=== PATIENT | female | born 1960 | race Caucasian/White ===

== ENCOUNTER 2023-08-11 18:31 | Emergency (ER) | payer OTHER, SELFPAY ==
[2023-08-11 18:45] VITALS: BP 149/75
--- NOTE | 2023-08-11 19:28 | ED.GENMED ---
History of Present Illness
General
Chief Complaint: Eye Problems
Source: patient
Exam Limitations: none
Time Seen by Provider: 08/11/23 19:07
Nursing documentation reviewed up to this point in time: agreed with
Travel History
Have you had any contact with someone who has COVID-19?: No
Do you have any symptoms of coronavirus? Fever > 100 degrees, chills, cough, shortness of breath, sore throat, loss of taste or smell, muscle aches, or headache?: No
History of Present Illness
History of Present Illness:
Patient woke this AM with comlaint of FB sensation right eye. Notice yellow discharge and crusting. No history of trauma. Brought self to ED for eval.
Past History
Past History
ED Past Medical History: CAD, HTN, Hypercholesterolemia, [place] and Other (ASD)
ED Past Surgical History: Cardiac (ASD repair 2010 at [facility])
PSI?: No
Social History
Tobacco: Non-smoker
Alcohol: None
Personal:
Living: with family
Review of Systems
Review of Systems
Allergies reviewed?: Yes
All Other Systems: ROS reviewed and negative except as documented in HPI and ROS
Constitutional: Reports no symptoms
EENT: Reports other (Right eye FB sensation, yellow discharge and crusting)
Respiratory: Reports no symptoms
Cardiac: Reports no symptoms
ABD/GI: Reports no symptoms
: Reports no symptoms
Musculoskeletal: Reports no symptoms
Skin: Reports no symptoms
Neurological: Reports no symptoms
Psychiatric: Reports no symptoms
Phy Exam
General Physical Exam
General Presentation: well appearing and no apparent distress
General age: appears stated age
General Skin: warm and dry
General Habitus: normal
General Mental: alert
Eye Exam
Eye Exam: PERRL, EOMI, cornea clear, globe normal and other (right conjunctival injection. Lids everted, swept with qtip, no FB detected)
Conjunctival Changes: bilateral: purulent discharge
Type of Exam: slit lamp, simple and fluorescein
Musculoskeletal Exam
Musculoskeletal Exam: full ROM and neuro vasc intact
Skin Exam
Skin Exam: normal color, warm/dry and no rash
Psychiatric Exam
Psychiatric Exam: normal mood/affect
Course
Orders/Labs/Results
Orders:
Orders
08/11/23 19:25
Tobramycin 0.3% [Tobrex 0.3% Eye Drops] See Dose Instructions OPHTH NOW STA
Vital Signs
Initial and Last Documented VS:
Initial Vital Signs
Temp Pulse Resp BP Pulse Ox
98.2 F 78 16 149/75 97
08/11/23 18:45 08/11/23 18:45 08/11/23 18:45 08/11/23 18:45 08/11/23 18:45
Last Documented Vital Signs
Temp Pulse Resp BP Pulse Ox
98.2 F 78 16 149/75 97
08/11/23 18:45 08/11/23 18:45 08/11/23 18:45 08/11/23 18:45 08/11/23 18:45
*Critical Care Note
Total Time (30-74mins, 75-104mins- exclusive of procedures): Not Applicable
ED Attending Note
-
Portions of this chart may have been created with voice recognition software.� Occasional wrong word or��sound alike� substitutions may have occurred due to the inherent limitations of voice recognition software.
Discharge Plan
Departure
Patient Disposition: Home (Routine Discharge)
Date of Disposition: 08/11/23
Time of Disposition: 19:26
Patient with high blood pressure during this ER visit?: No
Condition: Good
Covid-19: Not Applicable
Discharge Problem:
Acute conjunctivitis of both eyes
Instructions: Conjunctivitis ([place]) (DC)
Prescriptions:
New
tobramycin 0.3 % drops
1 drp ophthalmic (eye) Q4HWA Qty: 5 0RF
Activity Restrictions/Additional Instructions:
Follow up with your eye doctor on monday.
[2023-08-11] MEDS: TOBREX 0.3% EYE DROPS 1 DROP OPHTH (19:32)
== END 2023-08-11 19:44 | disposition home or self-care (01) ==
LOC: EMR 18:31
PROVIDERS: EMERGENCY PHYSICIAN Emergency Medicine; FAMILY PHYSICIAN Student in an Organized Health Care Education/Training Program
DX: H10.33 Unspecified acute conjunctivitis, bilateral (principal)
CPT/HCPCS: 99283

== ENCOUNTER → 2023-10-19 06:37 | Day surgery (SDC) | payer OTHER, SELFPAY | LOC: GI 06:37 | PROVIDERS: ATTENDING PHYSICIAN Specialist | DX: Z12.11 Encounter for screening for malignant neoplasm of colon (principal); D12.0 Benign neoplasm of cecum; D12.2 Benign neoplasm of ascending colon; D12.3 Benign neoplasm of transverse colon; K57.30 Diverticulosis of large intestine without perforation or abscess without bleeding; R19.4 Change in bowel habit; Z86.010 Personal history of colon polyps | CPT/HCPCS: 45385; 88305 ==

== ENCOUNTER 2024-03-09 08:38 | Emergency (ER) | payer OTHER, SELFPAY ==
[2024-03-09 08:45] VITALS: BP 145/87
[2024-03-09 09:00] VITALS: BP 152/76
--- NOTE | 2024-03-09 09:04 | ED.GENMED ---
History of Present Illness
General
Chief Complaint: Chest Pain
Source: patient
Time Seen by Provider: 03/09/24 08:54
History of Present Illness
History of Present Illness:
63yoF with a history of hyperlipidemia presenting for evaluation of chest pain. Symptoms initially started yesterday evening around 7pm, 15 minutes after using glaucoma eye drops. She had a central and left sided chest pain. She took an aspirin and
her chest pain eventually resolved and she was able to go to sleep. She woke up this morning and got out of bed around 7am and she again noticed central chest pressure. Her current discomfort is different from yesterday and not as severe. Nothing
seems to make the pain better or worse. Pain has been constant since 7am. She reports mild dyspnea when she walked up the steps this morning. She is also having some nausea. No diaphoresis or syncope.
Patient has a history of an NSTEMI in 2014. She underwent cardiac catheterization at that time which was normal and no cause was found. She follows with [facility] yearly. She is currently taking a statin and a baby aspirin. She was just
started on new glaucoma eye drops 2 days ago (dorzolamide-timolol). She is unsure if her current symptoms are related to her eye drops.
Past History
Past History
ED Past Medical History: CAD, HTN, Hypercholesterolemia, [place] and Other (ASD)
ED Past Surgical History: Cardiac (ASD repair 2009 at [facility])
PSI?: No
Social History
Tobacco: Non-smoker
Alcohol: None
Personal:
Living: with family
Phy Exam
General Physical Exam
General Presentation: well appearing and no apparent distress
General age: appears stated age
General Skin: warm and dry
General Habitus: normal
General Mental: alert
ENT Exam
ENT Exam: normocephalic
Cardiovascular Exam
Cardiovascular Exam: regular rate/rhythm, no edema, no murmur and normal peripheral pulses (2+ DP pulses bilaterally )
Pulmonary Exam
Pulmonary Exam: lungs clear, no respiratory distress, no rales, no crackles, no rhonchi and no wheezing
[place] Coma Scale
Eye Opening: Spontaneous
Verbal Response: Oriented
Motor Response: Obeys Commands
GCS Total Score: 15
Skin Exam
Skin Exam: normal color and warm/dry
Psychiatric Exam
Psychiatric Exam: normal mood/affect
Scores
Heart Score for Chest Pain Patients
STEMI patient?: No
History: Moderately Suspicious
ECG: Normal
Age: >45 - <65 years
Risk Factors: 1 or 2 Risk Factors
Troponin: </= Normal Limit
Heart Score for Chest Pain Patients: 3
Heart Score Risk: 2.5% MACE over next 6 weeks
Course
Orders/Labs/Results
Orders:
Orders
03/09/24 08:44
EKG [Electrocardiogram (*1)] Urgent
Reason for Study: Chest Pain
EKG- Treatment ONCE
03/09/24 09:02
Complete Blood Count/With Diff Urgent
Comprehensive Metabolic Panel Urgent
Troponin I Urgent
03/09/24 09:07
Cardiac Monitoring- Treatment ONCE
CR Chest - 2 Views Urgent
Comment:
Reason For Exam: CP
03/09/24 10:05
EKG- Treatment ONCE
03/09/24 11:53
Troponin I Urgent
03/09/24 12:00
Electrocardiogram (*1) Urgent
Reason for Study: Chest Pain
Abnormal Lab Results
03/09/24
09:02
WBC 4.4 L 10^3/uL
(4.8-10.8)
BUN 18 H mg/dl
(7-17)
Glucose 106 H mg/dl
(70-99)
03/09/24 09:02
03/09/24 09:02
Vital Signs
Initial and Last Documented VS:
Initial Vital Signs
Temp Pulse Resp BP Pulse Ox
98.1 F 79 16 145/87 95
03/09/24 08:45 03/09/24 08:45 03/09/24 08:45 03/09/24 08:45 03/09/24 08:45
Last Documented Vital Signs
Temp Pulse Resp BP Pulse Ox
98.1 F 68 17 144/67 93
03/09/24 12:46 03/09/24 12:00 03/09/24 12:00 03/09/24 12:00 03/09/24 12:00
MDM/Problems Addressed
Differential Diagnosis Includes:
63yoF here with chest pain. Initially started last night 15 minutes after using a new eye drop. Associated with dyspnea and nausea. Hx of HLD. Prior NSTEMI in 2014 but cardiac cath was reportedly normal. She is afebrile and hemodynamically stable.
She is well appearing in no distress. Exam is reassuring. Differential diagnosis includes but is not limited to: ACS, GERD, pneumonia, medication side effect, nonspecific chest pain
Initial ED plan: Check cardiac labs, EKG, and CXR.
*EKG
Interpreted by ED Provider?: Yes
EKG Intrepretation Date: 03/09/24
Heart Rate: 69
Rate: normal
Rhythm: sinus
[place]: normal axis
Interval: normal interval
QRS Pattern: normal QRS
Ischemia: no ischemia
*Critical Care Note
Total Time (30-74mins, 75-104mins- exclusive of procedures): Not Applicable
Update Note
Update Note:
Labs overall unremarkable. EKG shows normal sinus rhythm without ischemic changes and troponin is within normal limits. Chest x-ray is clear. Delta troponin/EKG checked at 3 hour larisa which are unchanged. HEART score is 3. No indication for
hospitalization. Advised follow-up with PCP and her mycologist. ED return precautions discussed. She expressed understanding and is agreeable to plan. She was discharged in stable condition.
ED Attending Note
-
Portions of this chart may have been created with voice recognition software.� Occasional wrong word or��sound alike� substitutions may have occurred due to the inherent limitations of voice recognition software.
Discharge Plan
Departure
Patient Disposition: Home (Routine Discharge)
Date of Disposition: 03/09/24
Time of Disposition: 12:33
Patient with high blood pressure during this ER visit?: Yes
Discharge Problem:
Chest pain
Instructions: Chest Pain NON-DHP End Polisher Follow Up
Prescriptions:
No Action
multivitamin Tablet
1 tab PO DAILY
aspirin 81 mg Tablet,Chewable
81 mg PO DAILY
dorzolamide-timolol 22.3-6.8 mg/mL Drops
1 drp OPHTHALMIC (EYE) BID
rosuvastatin 20 mg Tablet
20 mg PO HS
cysteine (L-cysteine) 500 mg Capsule
500 mg PO DAILY
lutein 20 mg Tablet
20 mg PO DAILY
Referrals:
Ricardo Joyce MD [Family Provider] -
Activity Restrictions/Additional Instructions:
Please call on Monday to schedule a follow-up with your family doctor and mycologist.
Return to the ER with any new or worsening symptoms.
Interventions
Interventions:
*Risk Screen - Suicide Last Done: 03/09/24 08:45
*General Assessment Last Done: 03/09/24 08:45
*Neglect/Abuse Screening Last Done: 03/09/24 08:45
ED- Fall Risk Assessment Last Done: 03/09/24 09:03
*ED COVID-19 Vaccine History Last Done: 03/09/24 09:04
*Nursing Disposition Last Done: 03/09/24 12:46
ED- Cardiac Assessment Last Done: 03/09/24 09:04
Discharge Date and Time
Discharge Date/Time: 03/09/24 12:47
Print Language: CROATIAN
[2024-03-09 09:05] VITALS: BMI 24.6
[2024-03-09 09:15] LABS: % Basophils 0.5 % (0-2); % Eosinophils 2.5 % (0-6); % Immature Granulocytes 0.2 % (0-0.5); % Lymphocytes 35.1 % (20.5-51.1); % Neutrophils 52.7 % (42.2-75.2); Absolute Eosinophils 0.1 10^3/uL (0-0.7); Absolute Lymphocytes 1.6 10^3/uL (1.2-3.4); Absolute Monocytes 0.4 10^3/uL (0.1-0.6); Absolute Neutrophils 2.3 10^3/uL (1.4-6.5); Hematocrit 39.8 % (37.0-47.0); Hemoglobin 13.8 g/dL (12.0-16.0); Mean Corp Hgb Conc. 34.7 g/dL (33.0-37.0); Mean Corpuscular Hgb 28.7 pg (27.0-31.0); Mean Corpuscular Volume 82.7 fL (81.0-99.0); Mean Platelet Volume 10.3 fL (7.4-10.4); Nucleated Red Blood Cells % 0 %; Platelet Count 272 10^3/uL (130-400); Red Blood Cell Count 4.81 10^6/uL (4.20-5.40); Red Cell Dist. Width 12.2 % (11.5-14.5); White Blood Cell Count 4.4 10^3/uL (4.8-10.8)
[2024-03-09 09:24] LABS: ALT (SGPT) 25 U/L (0-35); AST (SGOT) 27 U/L (14-36); Albumin 4.8 g/dl (3.5-5.0); Alkaline Phosphatase 88 U/L (38-126); Blood Urea Nitrogen 18 mg/dl (7-17); Carbon Dioxide 26 mmol/L (22-30); Chloride 104 mmol/L (98-107); Estimated Creatinine Clearance 71 ml/min; Glucose 106 mg/dl (70-99); Potassium 3.9 mmol/L (3.5-5.1); Sodium 143 mmol/L (135-145); Total Bilirubin 0.6 mg/dl (0.2-1.3); Total Protein 7.3 g/dl (6.3-8.2); eGFR > 60.00
[2024-03-09 09:35] LABS: Troponin I < 0.012 ng/ml
[2024-03-09 10:00] VITALS: BP 131/63
[2024-03-09 11:00] VITALS: BP 135/69
[2024-03-09 12:00] VITALS: BP 144/67
[2024-03-09 12:23] LABS: Troponin I < 0.012 ng/ml
== END 2024-03-09 12:47 | disposition home or self-care (01) ==
LOC: EMR 08:38
PROVIDERS: Physician Assistant; EMERGENCY PHYSICIAN Emergency Medicine; FAMILY PHYSICIAN Student in an Organized Health Care Education/Training Program
DX: R07.89 Other chest pain (principal); E78.00 Pure hypercholesterolemia, unspecified; I10 Essential (primary) hypertension; I25.10 Atherosclerotic heart disease of native coronary artery without angina pectoris; I25.2 Old myocardial infarction
CPT/HCPCS: 99283; 71046; 80053; 84484; 85025; 93005

== ENCOUNTER → 2024-04-17 06:33 | Day surgery (SDC) | payer OTHER, SELFPAY | LOC: GI 06:33 | PROVIDERS: ATTENDING PHYSICIAN Specialist; FAMILY PHYSICIAN Student in an Organized Health Care Education/Training Program | DX: Z12.11 Encounter for screening for malignant neoplasm of colon (principal); D12.0 Benign neoplasm of cecum; D12.2 Benign neoplasm of ascending colon; D12.3 Benign neoplasm of transverse colon; D12.4 Benign neoplasm of descending colon; K57.30 Diverticulosis of large intestine without perforation or abscess without bleeding; Z86.0101 Personal history of adenomatous and serrated colon polyps | CPT/HCPCS: 45385; 45380; 88305 ==

== ENCOUNTER → 2024-05-22 12:13 | Outpatient (REF) | payer OTHER, SELFPAY | LOC: HWWDC 12:13 | PROVIDERS: ATTENDING PHYSICIAN Obstetrics & Gynecology Gynecology; FAMILY PHYSICIAN Student in an Organized Health Care Education/Training Program | DX: Z12.31 Encounter for screening mammogram for malignant neoplasm of breast (principal) | CPT/HCPCS: 77063; 77067 ==

== ENCOUNTER 2025-01-22 23:44 | Emergency (ER) | payer MEDICARE, OTHER, SELFPAY ==
[2025-01-22 23:53] VITALS: BP 146/75
[2025-01-22 23:54] VITALS: BP 149/82
[2025-01-23 00:15] VITALS: BP 139/72
[2025-01-23 00:18] VITALS: BMI 25.9
[2025-01-23] MEDS: NITROSTAT (SUBLINGUAL) 0.4 MG SL (00:43)
[2025-01-23 00:44] VITALS: BP 124/68
[2025-01-23 00:48] VITALS: BP 113/71
[2025-01-23 01:00] VITALS: BP 125/60
[2025-01-23 01:00] LABS: INR 0.88; PT 12.4 Sec (11.4-14.6)
[2025-01-23 01:01] LABS: APTT 27.1 Sec (23.4-35.0)
[2025-01-23 01:06] LABS: ALT (SGPT) 23 U/L (0-35); AST (SGOT) 26 U/L (14-36); Albumin 4.3 g/dl (3.5-5.0); Alkaline Phosphatase 101 U/L (38-126); Blood Urea Nitrogen 29 mg/dl (7-17); Calcium 9.6 mg/dl (8.4-10.2); Carbon Dioxide 29 mmol/L (22-30); Chloride 106 mmol/L (98-107); Estimated Creatinine Clearance 60 ml/min; Glucose 107 mg/dl (70-99); Magnesium 2.1 mg/dl (1.6-2.3); Potassium 4.0 mmol/L (3.5-5.1); Sodium 142 mmol/L (135-145); Total Protein 7.0 g/dl (6.3-8.2); eGFR > 60.00
[2025-01-23 01:14] LABS: Hematocrit 37.2 % (37.0-47.0); Hemoglobin 12.7 g/dL (12.0-16.0); Mean Corp Hgb Conc. 34.1 g/dL (33.0-37.0); Mean Corpuscular Volume 85.9 fL (81.0-99.0); Nucleated Red Blood Cells % 0 %; Platelet Count 269 10^3/uL (130-400); Red Cell Dist. Width 12.2 % (11.5-14.5)
[2025-01-23 01:19] LABS: Troponin I < 0.012 ng/ml
[2025-01-23 01:38] LABS: TSH 2.58 uIU/ml (0.47-4.68)
--- NOTE | 2025-01-23 02:05 | ED.GENMED ---
History of Present Illness
General
Chief Complaint: Chest Pain
Source: patient
Exam Limitations: none
Time Seen by Provider: 01/23/25 00:06
Nursing documentation reviewed up to this point in time: agreed with
History of Present Illness
History of Present Illness:
Note:
CHIEF COMPLAINT(S)
Chest pain.
HISTORY OF PRESENT ILLNESS
The patient, a 66 year old
female, presents with chest pain that started early Monday morning at around 3 or 4 AM. Initially, the pain was intermittent but became constant around 9 or 10 PM tonight. She describes the pain as initially being a seven out of ten in intensity,
which prompted her to take aspirin before coming in. She also tried ibuprofen recently to determine if the pain was muscular, but it did not provide relief. She denies consuming caffeine regularly, though she sometimes has chocolate, and is aware of
her prediabetes. There is no alcohol consumption.
PAST MEDICAL AND SURGICAL HISTORY
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 She has undergone procedures for an appendectomy and knee replacement.
REVIEW OF SYSTEMS
- Cardiovascular: Reports chest pain, currently rated at six out of ten. Denies peripheral edema.
- Gastrointestinal: Denies abdominal pain.
PHYSICAL EXAM
- Cardiovascular: Electrocardiogram appears normal; vital signs appear stable upon review.
- Extremities: No swelling in the feet noted.
PLAN
A full cardiac workup will be conducted to assess the cause of the chest pain. If results are normal and the patient feels better, she will be discharged for follow-up with her material processor.
DIFFERENTIAL DIAGNOSIS
The Differential Diagnosis includes, in no particular order and is not limited to:
1. Acute Coronary Syndrome
2. Gastroesophageal Reflux Disease
3. Costochondritis
4. Pulmonary Embolism
5. Pericarditis
6. Anxiety or Panic Disorder
7. Musculoskeletal Pain
8. Aortic Dissection
9. Pneumothorax
10. Peptic Ulcer Disease
CARE-UPDATE
01/23/25 - 00:38
It seems like the product mgmt dev manager provided is not clear or does not fully capture the conversation accurately. Please provide a clearer or more detailed product mgmt dev manager related to the patient reassessment, discussion, or updates, so I can help you draft
the additional lines for the patient note.
HEART:
Result Summary
4 points Moderate Score (4-6 points)
Risk of MACE of 12-16.6%.
If EKG is highly suspicious, many experts recommend further workup and admission even with a low HEART Score.
Inputs:
History -> 0 = Slightly suspicious
EKG -> 0 = Normal
Age -> 2 = >=5
Risk Factors -> 2 = >= risk factors or history of atherosclerotic disease
Initial Troponin -> 0 = <=ormal limit
Disposition:
SUMMARY OF ENCOUNTER
The patient, a 64-year-old female, was seen in the emergency department for chest pain that had been ongoing for three days, worsening by tonight at 10 PM. Although initially, the pain fluctuated, by the time of evaluation it had resolved to 0 out
of 10 in intensity. The patient denied any other concurrent symptoms. She has a history of following up with a material processor at an outside hospital.
PLAN
A full cardiac workup will be conducted to assess the cause of the chest pain. Given the current resolution of symptoms, pending the results of the workup and patient stability, discharge with follow-up instructions may be an option.
INDEPENDENT REVIEW OF LABS AND INTERPRETATION OF TESTS
My independent review of EKG indicates normal findings.
MEDICAL DECISION MAKING
-Complexity of Data Reviewed: Chronic conditions affecting care includes a history of MRI and evaluation for intermittent chest pain. Differential diagnoses considered include Acute Coronary Syndrome, Gastroesophageal Reflux Disease,
Costochondritis, Pulmonary Embolism, Pericarditis, Anxiety or Panic Disorder, Musculoskeletal Pain, Aortic Dissection, Pneumothorax, and Peptic Ulcer Disease.
-Data:
Category 1
My independent interpretation of EKG is normal.
-Risk:
Consideration of Admission/Observation: Escalation of care including admission/observation was considered given the complexity and risk of the patients presenting complaint, exam findings, and/or their underlying comorbidities. However, ultimately I
feel the patient is safe for outpatient management with close follow-up. Reasoning: Work-up reassuring, does not reveal any acute life/organ-threatening processes, patients symptoms well controlled upon reevaluation, reexamination is reassuring,
vitals are stable, patient agreeable with discharge, reliable for follow-up.
DIAGNOSIS
- Chest pain, unspecified (R07.9)
Past History
Past History
ED Past Medical History: CAD, HTN, Hypercholesterolemia, [place] and Other (ASD)
ED Past Surgical History: Cardiac (ASD repair 2010 at [facility])
PSI?: No
Social History
Tobacco: Non-smoker
Alcohol: None
Personal:
Living: with family
Phy Exam
General Physical Exam
General Presentation: well appearing and no apparent distress
General Skin: warm and dry
General Habitus: normal
General Mental: alert
General Hydration: appears well hydrated
ENT Exam
ENT Exam: EOMI, pharynx normal, neck supple and normocephalic
Eye Exam
Eye Exam: PERRL, cornea clear and conjunctiva normal
Cardiovascular Exam
Cardiovascular Exam: regular rate/rhythm, no edema, no murmur and normal peripheral pulses
Pulmonary Exam
Pulmonary Exam: lungs clear, no respiratory distress, no rales, no crackles, no rhonchi, no stridor, no wheezing and no cough
Gastrointestinal Exam
Gastrointestinal Exam: normal bowel sounds, non tender, soft, no organomegaly, no pulsatile mass and non distended
Neurological Exam
Neurological Exam: alert, oriented x3, no motor deficits and speech normal
Musculoskeletal Exam
Musculoskeletal Exam: full ROM and no edema
Skin Exam
Skin Exam: normal color, warm/dry, no rash and no petechia
Psychiatric Exam
Psychiatric Exam: normal mood/affect
Scores
Heart Score for Chest Pain Patients
STEMI patient?: No
History: Slightly or Non-Suspicious
ECG: Normal
Age: >45 - <65 years
Risk Factors: >/= 3 Risk Factors or History of CAD
Troponin: </= Normal Limit
Heart Score for Chest Pain Patients: 3
Heart Score Risk: 2.5% MACE over next 6 weeks
Course
Orders/Labs/Results
Orders:
Orders
01/22/25 23:49
ECG [Electrocardiogram (*1)] Urgent
Reason for Study: Chest Pain
01/22/25 23:50
EKG- Treatment ONCE
01/23/25 00:26
Complete Blood Count/With Diff Urgent
Comprehensive Metabolic Panel Urgent
Magnesium Urgent
NT-proBNP Urgent
PTT Urgent
Prothrombin Time Urgent
TSH Urgent
Troponin I Urgent
01/23/25 00:36
Nitroglycerin Sublingual [Nitrostat (Sublingual)] 0.4 mg SL [id number] PRN
01/23/25 01:26
EKG- Treatment ONCE
01/23/25 01:28
CR Chest - 2 Views Urgent
Comment:
Reason For Exam: cp
01/23/25 03:00
Electrocardiogram (*1) Urgent
Reason for Study: Chest Pain
01/23/25 03:01
Troponin I Urgent
Abnormal Lab Results
01/23/25
00:26
MPV 10.5 H fL
(7.4-10.4)
Monocytes % 10.1 H %
(1.7-9.3)
BUN 29 H mg/dl
(7-17)
Glucose 107 H mg/dl
(70-99)
01/23/25 00:26
01/23/25 00:26
Vital Signs
Initial and Last Documented VS:
Initial Vital Signs
Temp Pulse Resp BP Pulse Ox
97.8 F 68 16 146/75 97
01/22/25 23:53 01/22/25 23:53 01/22/25 23:53 01/22/25 23:53 01/22/25 23:53
Last Documented Vital Signs
Temp Pulse Resp BP Pulse Ox
97.6 F 63 18 112/59 96
01/22/25 23:54 01/23/25 04:30 01/23/25 04:30 01/23/25 04:00 01/23/25 04:30
*Pulse Oximetry
SaO2: 97
Oxygen Mode of Delivery: Room air
Patient hypoxic: no
*Critical Care Note
Total Time (30-74mins, 75-104mins- exclusive of procedures): Not Applicable
Update Note
Update Note:
EKG shows normal sinus rhythm rate of 63 with normal intervals, normal axis. No evidence of acute ischemia present.When compared with first previous EKG there is no obvious interval change
ED Attending Note
-
Portions of this chart may have been created with voice recognition software.� Occasional wrong word or��sound alike� substitutions may have occurred due to the inherent limitations of voice recognition software.
Discharge Plan
Departure
Patient Disposition: Home (Routine Discharge)
Date of Disposition: 01/23/25
Time of Disposition: 04:19
Patient with high blood pressure during this ER visit?: No
Condition: Good
Discharge Problem:
Chest pain
Instructions: Chest Pain NON-DHP Experience Planning Strategist Follow Up
Prescriptions:
No Action
multivitamin Tablet
1 tab PO DAILY
aspirin 81 mg Tablet,Chewable
81 mg PO DAILY
dorzolamide-timolol 22.3-6.8 mg/mL Drops
1 drp OPHTHALMIC (EYE) BID
rosuvastatin 20 mg Tablet
20 mg PO HS
cysteine (L-cysteine) 500 mg Capsule
500 mg PO DAILY
lutein 20 mg Tablet
20 mg PO DAILY
Referrals:
Kyle Huizar MD [Non-Admitting Privileges]
Ricardo Joyce MD [Family Provider, Internal Medicine]
Activity Restrictions/Additional Instructions:
Please follow up with your [place] Experience Planning Strategist, Dr Huizar
Thank You for choosing [facility].
It was a pleasure meeting you and taking part in your care. We hope for your continued healing and wellness.
Please read discharge instructions in their entirety. However, they are for general education and may not describe your exact diagnosis at discharge. Information on your ER visit and medical conditions were discussed with you along with appropriate
follow up information...
If indicated, please take your medications as instructed and indicated on discharge paperwork.
Please schedule a follow up appointment as directed. Call to schedule an appointment
Please return to the emergency department with ANY change in, persisting, or worsening of symptoms. If any of your symptoms do not improve, or persist, or become more severe within 6-12 hours, please return to the emergency department for further
care.
Please return to the emergency department if you develop a headache, neck pain/stiffness, fever greater than 100.4F, chest pain, shortness of breath, persistent nausea, vomiting, slurred speech, difficulty walking, numbness/tingling, weakness, signs
of infection or any other symptoms that are worrisome to you.
If you have any questions or concerns please do not hesitate to call the Hospital at
Interventions
Interventions:
*Risk Screen - Suicide Last Done: 01/22/25 23:56
*General Assessment Last Done: 01/23/25 00:18
*Neglect/Abuse Screening Last Done: 01/22/25 23:56
*ED- Fall Risk Assessment Last Done: 01/23/25 00:18
*ED COVID-19 Vaccine History Last Done: 01/23/25 00:18
*Nursing Disposition Last Done: 01/23/25 04:53
ED- Cardiac Assessment Last Done: 01/23/25 00:13
Discharge Date and Time
Discharge Date/Time: 01/23/25 04:56
Print Language: CROATIAN
[2025-01-23 03:00] VITALS: BP 117/52
[2025-01-23 03:44] LABS: Troponin I < 0.012 ng/ml
[2025-01-23 04:00] VITALS: BP 112/59
== END 2025-01-23 04:56 | disposition home or self-care (01) ==
LOC: EMR 23:44
PROVIDERS: EMERGENCY PHYSICIAN Student in an Organized Health Care Education/Training Program; FAMILY PHYSICIAN Student in an Organized Health Care Education/Training Program; REFERRING PHYSICIAN Internal Medicine Cardiovascular Disease
DX: R07.89 Other chest pain (principal); E78.00 Pure hypercholesterolemia, unspecified; I10 Essential (primary) hypertension; I25.10 Atherosclerotic heart disease of native coronary artery without angina pectoris; R73.03 Prediabetes; Z86.73 Personal history of transient ischemic attack (TIA), and cerebral infarction without residual deficits; Z90.49 Acquired absence of other specified parts of digestive tract; Z96.659 Presence of unspecified artificial knee joint
CPT/HCPCS: 99283; 71046; 80053; 83735; 83880; 84443; 84484; 85025; 85610; 85730; 93005